=== PATIENT | male | born 1965 | race Caucasian/White ===

== ENCOUNTER 2020-07-01 09:14 | Observation (INO) | payer OTHER, SELFPAY ==
[~2020-07-01] VITALS: Ht 170.2 cm; Wt 98.0 kg
[2020-07-01 09:16] VITALS: BP 199/97
--- NOTE | 2020-07-01 09:16 | NUR ---
Patient to bed 11. RN evaluating the patient at bedside.
--- NOTE | 2020-07-01 09:24 | NUR ---
[facility]
--- NOTE | 2020-07-01 10:27 | NUR ---
55 Y/O M BIB FAMILY FROM HOME, PT STATES "I DONT FEEL GOOD". UNABLE TO GIVE ME ANY SYMPTOMS HE FEELS AT THIS TIME. DENIES PAIN, SOB, COUGH, ABD PAIN, URINARY PAIN. UPON ASSESSMENT PT SEEMS SLIGHTLY ALTERED. A&O X2 TO NAME AND . PT UNABLE TO AMBULATE, USES WHEELCHAIR, AKA L LEG FROM WORK ACCIDENT A FEW YEARS BACK. PT HAS BILATERAL LEG AND UPPER EXTREMITY EDEMA PITTING +1 ON ARMS, +2 ON LEGS. PMH: DM2, HTN NKA MEDS: COMPLIANT
[2020-07-01] MEDS ORDERED: HYDR-1100 PO (11:11)
[2020-07-01] MEDS ORDERED: METO100T14 PO (11:11)
[2020-07-01] MEDS ORDERED: LISI-487 PO (11:11)
[2020-07-01] MEDS ORDERED: FERR325E14 PO (11:11)
[2020-07-01] MEDS ORDERED: POTA10TE30 PO (11:11)
[2020-07-01] MEDS ORDERED: NIFE30TE5 PO (11:11)
[2020-07-01] MEDS ORDERED: FURO-570 PO (11:11)
[2020-07-01] MEDS ORDERED: CHOL500014 PO (11:11)
[2020-07-01 11:14] LABS: HEMOGLOBIN 9.5 g/dL (12.0-18.0)
[2020-07-01 11:20] LABS: BASOPHILS # (AUTO) 0.1 K/uL (0.00-0.22); BASOPHILS % (AUTO) 1.2 % (0.0-2.0); EOSINOPHILS % (AUTO) 0.5 % (0.0-4.0); HEMATOCRIT 28.1 % (36-52); LYMPHOCYTES # (AUTO) 0.9 K/uL (2.0-11.5); LYMPHOCYTES % (AUTO) 14.7 % (20.5-51.1); MEAN CORPUSCULAR HEMOGLOBIN 30 pg (27-31); MEAN CORPUSCULAR HGB CONC 34 g/dL (33-37); MONOCYTES # (AUTO) 0.3 K/uL (0.8-1.0); MONOCYTES % (AUTO) 5.3 % (1.7-9.3); NEUTROPHILS # (AUTO) 4.5 K/uL (1.8-7.7); NEUTROPHILS % (AUTO) 78.3 % (42.2-75.2); PLATELET COUNT (AUTO) 363 K/uL (140-450); RED CELL DISTRIBUTION WIDTH 15.8 % (11.6-13.7); WHITE BLOOD COUNT (AUTO) 5.8 K/uL (4.8-10.8)
[2020-07-01] MEDS ORDERED: LORazepam 2 MG/ML VIAL IVP ONE (11:20)
[2020-07-01 11:22] LABS: BILIRUBIN,URINE NEGATIVE (NEGATIVE); BLOOD, URINE TRACE-I (NEGATIVE); COLOR,URINE YELLOW (YELLOW); LEUKOCYTE ESTERASE ,URINE NEGATIVE (NEGATIVE); NITRITE, URINE NEGATIVE (NEGATIVE); UGLUCOSE NEGATIVE (NEGATIVE)
[2020-07-01 11:28] LABS: ACETAMINOPHEN < 0.5 ug/ml (10-30); ALBUMIN 2.1 g/dL (3.4-5.0); ANION GAP 11.8 (8-16); ASPARTATE AMINOTRANSFERASE 29 U/L (15-37); CARBON DIOXIDE 25.6 mmol/L (21-32); CHLORIDE 108 mmol/L (98-107); CREATININE 3.1 mg/dL (0.6-1.3); GFR ARICAN-AMERICAN 27 mL/min (>90); POTASSIUM 3.4 mmol/L (3.5-5.1); SODIUM SERUM 142 mmol/L (136-145); TOTAL BILIRUBIN 0.4 mg/dL (0.0-1.0); UREA NITROGEN, BLOOD 40 mg/dL (7-18)
--- NOTE | 2020-07-01 11:30 | NUR ---
XRAY AT BEDSIDE.
[2020-07-01 11:35] LABS: GLUCOSE 28 mg/dL (74-106); SALICYLATE < 2.8 mg/dL (2.8-20.0)
[2020-07-01] MEDS ORDERED: DEXTROSE 50% 50 ML SYR IVP ONE (11:40)
[2020-07-01 11:45] LABS: APPEARANCE,URINE SLIGHTLY HAZY (CLEAR)
[2020-07-01 11:46] LABS: FINE GRANULAR CASTS,URINE 0-10 /LPF (None Seen); HYALINE CASTS, URINE 0-10 /LPF (None Seen); RBC,URINE 0-5 /HPF (0-5); WBC,URINE 0-5 /HPF (0-5)
[2020-07-01 11:48] LABS: BARBITURATE, URINE NEGATIVE ng/ml (NEG <=200); BENZODIAZEPINE, URINE NEGATIVE ng/mL (NEG <=200); CANNABINOID, URINE NEGATIVE ng/mL (NEG <=50); COCAINE, URINE NEGATIVE ng/mL (NEG <=300); OPIATE, URINE NEGATIVE ng/mL (NEG <=2000); PHENCYCLIDINE SCREEN,URINE NEGATIVE ng/mL (NEG <=25)
[2020-07-01] MEDS ORDERED: cefTRIAXone 1,000 MG VIAL ONE ×2 (12:49→14:01)
[2020-07-01] MEDS ORDERED: ONDANSETRON 4 MG/2 ML VIAL IVP PRN (13:20)
[2020-07-01] MEDS ORDERED: ACETAMINOPHEN 325 MG TAB PO PRN (13:20)
[2020-07-01] MEDS ORDERED: HYDROcodone/APAP 5/325 MG 1 TAB TAB PO PRN (13:20)
[2020-07-01] MEDS ORDERED: LORazepam 2 MG/ML VIAL IVP PRN (13:20)
[2020-07-01] MEDS: DEXT 5% /NACL 0.9% 1,000 ML IV SCH (13:38)
[2020-07-01] MEDS ORDERED: AZITHROMYCIN 500 MG INJ VIAL IV ONE (14:01)
[2020-07-01] MEDS: AZITHROMYCIN 500 MG in DEXTROSE 5% 250 ML IV SCH (14:47)
--- NOTE | 2020-07-01 15:03 | NUR ---
RECEIVED REPORT FROM ER NURSE SEGUNDO, PT CHIEF COMPLAIN OF NOT FEELING WELL AND BLOOD PRESSURE HIGH,PT IS CONFUSED ADMITTED ON MED SURG AND ON 2LPM NC OXYGEN, ON REGULAR DIET IV INTACT ON RIGHT AC WITH IV FLUIDS OF D5NS AT 60 MLS/HR, WITH SACRAL REDNESS AND LEFT BELOW KNEE AMPUTATION AND BILATERAL LE/UE EDEMA, WITH JENKINS CATHETER,POTASSIUM LEVEL AT 3.4 DR GARRISON AWARE PER ER NURSE AND DO NOT NEED ANY REPLACEMENT FOR POTASSIUM.
[2020-07-01 15:35] VITALS: BP 215/121
--- NOTE | 2020-07-01 15:35 | NUR ---
PATIENT TRANSFERRED TO UNIT VIA GURNEY, ASSISTED TO BED, CHANGED PT GOWN, CHECK VITAL SIGNS BP 215/121 MA 82 RR 18 TEMP 96.7 OXYGEN SATURATION 100% ORIENTED TO ROOM, MRSA DONE AT ER. URINE OUTPUT 300 ML, SAFETY MEASURES IN PLACE AND CALL LIGHT WITHIN REACH WILL CONTINUE TO MONITOR.
--- NOTE | 2020-07-01 15:41 | NUR ---
PAGED DR GARRISON FOR HIGH BP, VERBAL ORDER FOR HYDRALAZINE 50 MG Q 4 HR PRN.
--- NOTE | 2020-07-01 15:42 | NUR ---
Patient will be admitted to care of MELI LYONS. Admited to MED SURG. Will go to room 110B. Belongings list completed. Report to JOSR LOPEZ.
[2020-07-01] MEDS: hydrALAZINE 25 MG TAB PO PRN (16:22)
--- NOTE | 2020-07-01 16:26 | NUR ---
BP 209/119 HR 81 O2SAT 100%. HYDRALAZINE 50MG PO PRN GIVEN WITH APPLESAUCE. PATIENT ALERT TO NAME AND . NO NOTED DISTRESS AT THIS TIME. CALL LIGHT WITHIN REACH. WILL CONTINUE TO MONITOR. Addendum: 07/01/20 at 1633 by Maninder Hernandez RN PRIMARY JESSICA CAMPOS MADE AWARE.
--- NOTE | 2020-07-01 17:09 | NUR ---
INFORMED DR GARRISON IF WE COULD TRANSFERS PT FROM [place] TO TELEMONITOR PATIENTS BLOOD PRESSURE TOO HIGH, AND AGREED,
[2020-07-01] MEDS ORDERED: INSULIN LISPRO SLIDING SCALE 100 UNITS/ML VIAL SUBQ PRN (18:10)
[2020-07-01] MEDS ORDERED: DEXTROSE 50% 50 ML SYR IVP PRN (18:10)
--- NOTE | 2020-07-01 18:30 | NUR ---
CHECK BLOOD SUGAR 31 MG/DL GAVE [id number] ORDERED.
--- NOTE | 2020-07-01 19:00 | NUR ---
PT BP 217/109 FL 81 GAVE HYDRALAZINE AND [address] GARRISON AWARE.
[2020-07-01] MEDS: hydrALAZINE 20 MG/ML VIAL IVP PRN (19:07)
[2020-07-01] MEDS: amLODIPine 5 MG TAB PO SCH (19:07)
--- NOTE | 2020-07-01 19:36 | NUR ---
RECEIVED PATIENT FROM MORNING SHIFT RN AWAKE , ALERT [place] SPEAKING . NO DISTRESS, RESPIRATION EVEN UNLABORED. JENKINS CATHETER INTACT DRAINING WELL TO A PINKISH COLORED URINE. DENIES PAIN AT THIS TIME. WILL CONTINUE TO MONITOR.
--- NOTE | 2020-07-01 19:39 | NUR ---
ENDORSED TO NIGHT NURSE FOR CONTINUITY OF CARE.
[2020-07-01 20:00] VITALS: BP 157/85
--- NOTE | 2020-07-01 20:10 | NUR ---
BLOOD SUGAR 91 , ORANGE JUICE WITH REGULAR SUGAR GIVEN WENT UP TO 108. NO DISTRESS NOTED. CALL LIGHT WITHIN REACH. WILL CONTINUE TO MONITOR.
[2020-07-01] MEDS: BLOOD GLUCOSE MONITORING 1 DEV DEV FS SCH (20:43)
--- NOTE | 2020-07-01 23:10 | NUR ---
MADE ROUNDS PATIENT SLEEPING AT THIS TIME. BREATHING REGULAR NON LABORED.
[2020-07-02] VITALS (7 sets, daily range): BP systolic 125–175; BP diastolic 52–93
[2020-07-02] MEDS: hydrALAZINE 25 MG TAB PO PRN ×2 (00:17→22:16)
--- NOTE | 2020-07-02 00:17 | NUR ---
BP- 174/89 HYDRALAZINE 50 MG TABLET GIVEN AND WAS EFFECTIVE, WENT DOWN TO 120/56. DENIES PAIN.
[2020-07-02] MEDS: DEXT 5% /NACL 0.9% 1,000 ML IV SCH ×2 (01:50→14:49)
[2020-07-02 06:38] LABS: BASOPHILS % (AUTO) 0.6 % (0.0-2.0); EOSINOPHILS # (AUTO) 0.1 K/uL (0-0.4); EOSINOPHILS % (AUTO) 2.2 % (0.0-4.0); HEMATOCRIT 24.8 % (36-52); HEMOGLOBIN 8.5 g/dL (12.0-18.0); LYMPHOCYTES # (AUTO) 1.3 K/uL (2.0-11.5); MEAN CORPUSCULAR HEMOGLOBIN 30 pg (27-31); MEAN CORPUSCULAR HGB CONC 34 g/dL (33-37); MEAN CORPUSCULAR VOLUME 88.8 fL (80-94); MONOCYTES # (AUTO) 0.5 K/uL (0.8-1.0); MONOCYTES % (AUTO) 9.4 % (1.7-9.3); NEUTROPHILS # (AUTO) 3.7 K/uL (1.8-7.7); NEUTROPHILS % (AUTO) 64.8 % (42.2-75.2); PLATELET COUNT (AUTO) 328 K/uL (140-450); RED BLOOD CELL COUNT(AUTO) 2.79 MIL/uL (4.20-6.10); RED CELL DISTRIBUTION WIDTH 15.5 % (11.6-13.7); WHITE BLOOD COUNT (AUTO) 5.8 K/uL (4.8-10.8)
[2020-07-02 06:55] LABS: ALBUMIN 1.8 g/dL (3.4-5.0); ANION GAP 11.8 (8-16); CARBON DIOXIDE 24.9 mmol/L (21-32); CREATININE 3.1 mg/dL (0.6-1.3); MAGNESIUM 2.3 mg/dL (1.8-2.4); POTASSIUM 3.7 mmol/L (3.5-5.1); TOTAL BILIRUBIN 0.3 mg/dL (0.0-1.0)
[2020-07-02] MEDS: BLOOD GLUCOSE MONITORING 1 DEV DEV FS SCH ×4 (06:55→21:29)
--- NOTE | 2020-07-02 07:14 | NUR ---
PATIENT HAS BEEN SCREENED AND CATEGORIZED MODERATE NUTRITION RISK. PATIENT WILL BE SEEN WITHIN 3-5 DAYS OF ADMISSION. 07/03/20-07/05/20 DORINDA GRADY MS, RDN
--- NOTE | 2020-07-02 07:30 | NUR ---
ENDORSED TO THE MORNING SHIFT RN FOR CONTINUITY OF CARE IN STABLE CONDITION.
--- NOTE | 2020-07-02 07:31 | NUR ---
RECEIVED ENDORSEMENT AT THIS TIME. PT IS STABLE RESTING WITH EYES CLOSED. ON 2L NS AT THIS TIME. POC DISCUSSED AND WILL CONTINUE.
[2020-07-02] MEDS: amLODIPine 5 MG TAB PO SCH (08:26)
[2020-07-02] MEDS: ASPIRIN 81 MG TAB.CHEW PO SCH (08:26)
[2020-07-02] MEDS: ENOXAPARIN 40 MG/0.4 ML SYR SUBQ SCH (08:28)
--- NOTE | 2020-07-02 08:30 | NUR ---
SCHEDULED MEDICATION GIVEN TOLERATED WELL, DENIES ANY DISTRESS PT IS [place] SPEAKING AAOX4. LUNG SOUNDS DIMINISHED NO COUGH ABD IS SOFT NONTENDER WITH ACTIVE BS X 4. REPORTS LBM 2 DAYS AGO WITH NO DIFFICULTY. HAS IV ACCESS TO RIGHT AC THAT IS INTACT AND PATENT RECEIVING IVF WITH NO ISSUES.
--- NOTE | 2020-07-02 10:25 | NUR ---
PT RESTING IN BED AT THIS TIME WITH EYES CLOSED.
--- NOTE | 2020-07-02 12:30 | NUR ---
BS 169 2 UNITS OF COVERAGE GIVEN TOLERATED WELL. DENIES ANY DISTRESS.
[2020-07-02] MEDS ORDERED: AZIT500T8 PO (13:50)
[2020-07-02] MEDS ORDERED: CEPH500T PO (13:50)
[2020-07-02] MEDS: AZITHROMYCIN 500 MG in DEXTROSE 5% 250 ML IV SCH (14:15)
--- NOTE | 2020-07-02 14:25 | NUR ---
TITRATED OFF O2 SPO2 95% ON RA. DENIES SOB. PT RESTING.
--- NOTE | 2020-07-02 16:25 | NUR ---
DR GARRISON NOTIFIED OF 200ML OF OUTPUT THIS SHIFT WITH GENERALIZED EDEMA. DR ORDERED LASIX TO BE GIVEN IVP AND WILL PRECEDE WITH DISCHARGE.
[2020-07-02] MEDS ORDERED: FUROSEMIDE 20 MG/2 ML VIAL IVP ONE (16:50)
--- NOTE | 2020-07-02 17:36 | NUR ---
JENKINS CATH DC PER MD ORDER DUE TO DISCHARGE. AWAITING POST VOID.
[2020-07-02] MEDS: hydrALAZINE 20 MG/ML VIAL IVP PRN (18:46)
--- NOTE | 2020-07-02 18:47 | NUR ---
PT VOIDED ABOUT 50ML OF URINE HOWEVER MATIAS WAS 180/96, 96 SO PRN HYDRALAZINE IVP WAS GIVEN FOR ELEVATED BP. WILL RECHECK TO MAKE SURE BP IS NORMAL BEFORE DISCHARGE. DISCHARGE INSTRUCTIONS DISCUSSED WITH PATIENT. VERBALIZED UNDERSTANDING.
--- NOTE | 2020-07-02 19:33 | NUR ---
PT ENDORSED TO PARTS DESIGNER RN FOR CONTINUITY OF CARE. ENDORSED F/U AT 1946 FOR BP CHECK AND ASSESS STABILITY FOR DISCHARGE. ALL DISCHARGE INSTRUCTIONS DISCUSSED WITH PATIENT. PT VERBALIZED UNDERSTANDING.
--- NOTE | 2020-07-02 19:34 | NUR ---
RECEIVED PATIENT FROM AM SHIFT RN AWAKE , ALERT RESTING IN BED , NO ACUTE DISTRESS, BREATHING REGULAR NON LABORED. DENIES PAIN AT THIS TIME.
--- NOTE | 2020-07-02 20:38 | NUR ---
BP- PAGED DR. FINK TELEGRAPH DISPATCHER OF DR GARRISON. CALLED BACK AT [address] FINK REGARDING HIGH BP IF HE CONTINUE TO DISCHARGE PATIENT, HE SAID GIVE BP MEDS AND DISCHARGE HIM. PRN BP MEDS ADMINISTERED. BP STILL HIGH, PT FEEL DIZZY. NOTIFIED DR. FINK AND ORDERED TO CANCEL DISCHARGE. Addendum: 07/03/20 at 0649 by Vilma Wan RN RN BP- PAGED DR. FINK TELEGRAPH DISPATCHER OF DR GARRISON. CALLED BACK AT [address] FINK REGARDING HIGH BP IF HE CONTINUE TO DISCHARGE PATIENT, HE SAID GIVE BP MEDS AND DISCHARGE HIM. PRN BP MEDS ADMINISTERED.
[2020-07-03] VITALS: BP 184/91
--- NOTE | 2020-07-03 00:07 | NUR ---
BP STILL HIGH 184/92 , PATIENT FEEL DIZZY PAGED DR. FINK . CALLED BACK WITH ORDER TO HOLD DISCHARGE.
[2020-07-03] MEDS: DEXT 5% /NACL 0.9% 1,000 ML IV SCH (02:50)
[2020-07-03 04:00] VITALS: BP 177/86
[2020-07-03] MEDS: hydrALAZINE 25 MG TAB PO PRN (06:18)
--- NOTE | 2020-07-03 06:18 | NUR ---
BP- 177/86 -HYDRALAZINE 50 MG TABLET GIVEN. BLOOD SUGAR - 112MG/DL NO URINE OUTPUT. DENIES PAIN .
--- NOTE | 2020-07-03 07:05 | NUR ---
PAGED DR. GARRISON DUE TO PT NO URINE OUTPUT OVERNIGHT.
--- NOTE | 2020-07-03 07:05 | NUR ---
BLADDER SCAN DONE NOTED 480 ML URINE, DENIES PAIN. PAGED DR. GARRISON, AWAITING FOR CALL BACK.
--- NOTE | 2020-07-03 07:20 | NUR ---
PATIENT WAS ABLE TO URINATE WITH 180 ML URINE. ENDORSED PT TO MORNING SHIFT RN FOR CONTINUITY OF CARE IN STABLE CONDITION.
--- NOTE | 2020-07-03 07:25 | NUR ---
RECEIVED BEDSIDE REPORT FROM NIGHTSHIFT NURSE. PT RESTING IN BED. PT ABLE TO MAKE NEEDS KNOWN. RESPIRATIONS EVEN AND UNLABORED WITH NO SOB OR RESPIRATORY DISTRESS. SKIN WARM AND DRY TO TOUCH. IV SITE IN RAC 20G IS CLEAN, DRY, AND INTACT. SAFETY MEASURES IN PLACE. WILL CONTINUE TO MONITOR
[2020-07-03] MEDS: BLOOD GLUCOSE MONITORING 1 DEV DEV FS SCH ×2 (07:51→11:38)
[2020-07-03 08:00] VITALS: BP 199/98
[2020-07-03] MEDS: amLODIPine 5 MG TAB PO SCH (08:49)
[2020-07-03] MEDS: ENOXAPARIN 40 MG/0.4 ML SYR SUBQ SCH (08:49)
[2020-07-03] MEDS: ASPIRIN 81 MG TAB.CHEW PO SCH (08:50)
[2020-07-03] MEDS: hydrALAZINE 20 MG/ML VIAL IVP PRN (08:51)
--- NOTE | 2020-07-03 08:57 | NUR ---
ADMINISTERED SCHED MED PRESCRIBED PER MD ORDER. ADMINISTERED PRN HYDRALAZINE DUE TO PT BP BEING ELEVATED AT 202/99. MEDICATION EDUCATION PERFORMED. PT VERBALIZED UNDERSTANDING. SAFETY MEASURES IN PLACE. WILL CONTINUE TO MONITOR
--- NOTE | 2020-07-03 09:30 | NUR ---
PT NEPHEW CALLED AND ASKED FOR UPDATE. UPDATE GIVEN. NEPHEW VERBALIZED UNDERSTANDING. WILL CONTINUE TO MONITOR
--- NOTE | 2020-07-03 10:01 | NUR ---
PT BP AT 173/89, 180/93, AND 196/99 AFTER PRN IVP HYDRALAZINE. PAGED DR. VAUGHN, PER DR. VAUGHN HE WILL BE HERE AROUND [phone] TO ASSESS PATIENT. WILL CONTINUE TO MONITOR
--- NOTE | 2020-07-03 10:15 | NUR ---
PT DAUGHTER CALLED AND ASKED FOR UPDATE. UPDATE GIVEN. DAUGHTER VERBALIZED UNDERSTANDING. WILL CONTINUE TO MONITOR
--- NOTE | 2020-07-03 11:30 | NUR ---
PT BLOOD SUGAR IS 115. NO INSULIN NEEDED AT THIS TIME. SAFETY MEASURES IN PLACE. WILL CONTINUE TO MONITOR
[2020-07-03 12:00] VITALS: BP 177/90
--- NOTE | 2020-07-03 12:00 | NUR ---
SOCIAL WORK NOTE: SW WAS UNABLE TO MEET PATIENT AT BEDSIDE. SW LEFT VM WITH PATIENT'S SISTER, JOURDAN PHIPPS [phone]. SW WILL FOLLOW UP TO COMPLETE ASSESSMENT.
[2020-07-03] MEDS ORDERED: FUROSEMIDE 40 MG TAB PO SCH (12:10)
[2020-07-03] MEDS ORDERED: METOPROLOL SUCCINATE 50 MG TABER PO SCH (12:10)
[2020-07-03] MEDS ORDERED: lisinopriL 20 MG TAB PO SCH (12:10)
[2020-07-03] MEDS ORDERED: NIFEdipine 30 MG TABER PO SCH (12:10)
[2020-07-03] MEDS: AZITHROMYCIN 500 MG in DEXTROSE 5% 250 ML IV SCH (13:29)
--- NOTE | 2020-07-03 14:09 | NUR ---
PT C/O NAUSEA, STATES HE MAY HAVE OVEREATEN, EMESIS BASIN PROVIDED, DECLINED MEDICATION FOR NAUSEA, WILL CONTINUE TO MONITOR, CALL LIGHT WITHIN REACH, INFORMED HE NEEDS TO CALL US IF HE CHANGES HIS MIND AND WOULD LIKE MEDICATION. PT VERBALIZED UNDERSTANDING.
--- NOTE | 2020-07-03 15:00 | NUR ---
PER DR. VAUGHN, PT CAN GO HOME ONCE BP IS BELOW 150-160. PT BP IS 127/52. PT STATES HE FEELS BETTER AND WANTS TO GO HOME AROUND 1600. WILL CONTINUE TO MONITOR
--- NOTE | 2020-07-03 15:30 | NUR ---
WENT OVER DISCHARGE INSTRUCTIONS WITH PATIENT. USED METALIZING SUPERVISOR ANDIE [id number]. PT SIGNED APPROPRIATE DOCUMENTS. EDUCATED PT TO VISIT ED FOR ANY SIGNS OF DISTRESS. PT VERBALIZED UNDERSTANDING. PT REFUSED FLU VACCINE AND PNA VACCINE. REMOVED INTACT IV CANNULA, ID BAND, AND TELE MONITOR. TELE MONITOR RETURNED TO SENIOR ADMINISTRATIVE ASSISTANT. PT CHANGED INTO HIS OWN CLOTHES AND GATHERED HIS BELONGINGS. PT STABLE TO GO HOME VIA PRIVATE VEHICLE
[2020-07-04] MEDS ORDERED: FERROUS SULFATE 325 MG TABEC PO SCH (09:00)
[2020-07-04] MEDS ORDERED: POTASSIUM CHLORIDE 10 MEQ TABER PO SCH (09:00)
== END 2020-07-03 15:00 | disposition home or self-care (01) ==
LOC: MED 09:14 → MTU 13:19
PROVIDERS: ADMIT Hospitalist; ATTEND Hospitalist
DX: G93.40 Encephalopathy, unspecified (principal); Z20.822 Contact with and (suspected) exposure to COVID-19; E11.65 Type 2 diabetes mellitus with hyperglycemia; I12.9 Hypertensive chronic kidney disease with stage 1 through stage 4 chronic kidney disease, or unspecified chronic kidney disease; E11.22 Type 2 diabetes mellitus with diabetic chronic kidney disease; N18.9 Chronic kidney disease, unspecified; E11.42 Type 2 diabetes mellitus with diabetic polyneuropathy; E11.51 Type 2 diabetes mellitus with diabetic peripheral angiopathy without gangrene; E78.5 Hyperlipidemia, unspecified; Z79.899 Other long term (current) drug therapy
CPT/HCPCS: 36415; 70450; 71045; 80053; 80305; 81001; 82948; 83605; 83735; 83880; 84484; 85025; 87040; 87081; 87086; 87426; 93005; 96361; 96365; 96366; 96367; 96372; 96375; 96376; 99285; G0378; G0482; J0360; J0456; J0696; J1650; J1940; J2060; J7042; J7060; G0480

== ENCOUNTER 2020-07-19 09:23 | Inpatient (IN) | payer OTHER, SELFPAY ==
[~2020-07-19] VITALS: Ht 167.6 cm; Wt 70.3 kg
[2020-07-19 09:23] VITALS: BP 156/78
[~2020-07-19 09:23] MED LIST: AZIT500T8 PO; CEPH500T PO; CHOL500014 PO; FERR325E14 PO; FURO-570 PO; HYDR-1100 PO; LISI-487 PO; METO100T14 PO; NIFE30TE5 PO; POTA10TE30 PO
[2020-07-19] MEDS ORDERED: DEXTROSE 50% 50 ML SYR IVP ONE ×2 (09:34→09:35)
[2020-07-19] MEDS ORDERED: NACL 0.9% 1,000 ML IV SCH (09:35)
[2020-07-19] MEDS ORDERED: cefTRIAXone 1,000 MG in DEXT 5% MINI-BAG PLUS 50 ML IV ONE (09:35)
[2020-07-19] MEDS ORDERED: cefTRIAXone 1,000 MG VIAL ONE (09:40)
[2020-07-19 09:59] LABS: BASOPHILS # (AUTO) 0.1 K/uL (0.00-0.22); BASOPHILS % (AUTO) 0.9 % (0.0-2.0); EOSINOPHILS # (AUTO) 0.1 K/uL (0-0.4); EOSINOPHILS % (AUTO) 2.4 % (0.0-4.0); HEMOGLOBIN 8.7 g/dL (12.0-18.0); LYMPHOCYTES # (AUTO) 1.1 K/uL (2.0-11.5); LYMPHOCYTES % (AUTO) 19.2 % (20.5-51.1); MEAN CORPUSCULAR HEMOGLOBIN 31 pg (27-31); MEAN CORPUSCULAR HGB CONC 34 g/dL (33-37); MEAN CORPUSCULAR VOLUME 91.3 fL (80-94); MONOCYTES # (AUTO) 0.4 K/uL (0.8-1.0); MONOCYTES % (AUTO) 7.3 % (1.7-9.3); NEUTROPHILS # (AUTO) 3.9 K/uL (1.8-7.7); NEUTROPHILS % (AUTO) 70.2 % (42.2-75.2); PLATELET COUNT (AUTO) 380 K/uL (140-450); RED BLOOD CELL COUNT(AUTO) 2.85 MIL/uL (4.20-6.10); RED CELL DISTRIBUTION WIDTH 15.9 % (11.6-13.7); WHITE BLOOD COUNT (AUTO) 5.6 K/uL (4.8-10.8)
[2020-07-19] MEDS ORDERED: FUROSEMIDE 40 MG/4 ML VIAL IVP ONE (10:10)
[2020-07-19 10:20] LABS: ALBUMIN 2.2 g/dL (3.4-5.0); ANION GAP 9.8 (8-16); CARBON DIOXIDE 24.6 mmol/L (21-32); CREATININE 3.3 mg/dL (0.6-1.3); POTASSIUM 5.4 mmol/L (3.5-5.1); TOTAL BILIRUBIN 0.3 mg/dL (0.0-1.0)
[2020-07-19] MEDS ORDERED: POTASSIUM CHLORIDE 10 MEQ TABER PO PRN (11:40)
[2020-07-19] MEDS ORDERED: HYDROcodone/APAP 5/325 MG 1 TAB TAB PO PRN (11:40)
[2020-07-19] MEDS ORDERED: KCL 20 MEQ/WATER INJ PREMIX 200 ML IV PRN (11:40)
[2020-07-19] MEDS ORDERED: MAGNESIUM OXIDE 400 MG TAB PO PRN (11:40)
[2020-07-19] MEDS ORDERED: MAG SULF 2000 MG/WATER PREMIX 50 ML IV PRN (11:40)
[2020-07-19] MEDS ORDERED: ONDANSETRON 4 MG/2 ML VIAL IVP PRN (11:40)
[2020-07-19] MEDS ORDERED: ACETAMINOPHEN 325 MG TAB PO PRN (11:40)
[2020-07-19] MEDS ORDERED: LORazepam 1 MG TAB PO PRN (11:40)
[2020-07-19 13:40] VITALS: BP 186/97
[2020-07-19] MEDS: ALBUTEROL SULFATE/IPRATROPIU 3 ML SOL IH SCH (13:43)
[2020-07-19 16:00] VITALS: BP 203/105
[2020-07-19 16:18] LABS: APPEARANCE,URINE CLEAR (CLEAR); BILIRUBIN,URINE NEGATIVE (NEGATIVE); BLOOD, URINE NEGATIVE (NEGATIVE); COLOR,URINE YELLOW (YELLOW); LEUKOCYTE ESTERASE ,URINE NEGATIVE (NEGATIVE); NITRITE, URINE NEGATIVE (NEGATIVE); PH,URINE 5.5 (5.0-9.0); UGLUCOSE NEGATIVE (NEGATIVE)
[2020-07-19] MEDS ORDERED: NIFEdipine 30 MG TABER PO SCH (16:30)
[2020-07-19] MEDS ORDERED: hydrALAZINE 25 MG TAB PO SCH (17:00)
[2020-07-19] MEDS ORDERED: DEXTROSE 50% 50 ML SYR IVP PRN (19:05)
[2020-07-19 20:00] VITALS: BP 209/111
[2020-07-19] MEDS: BLOOD GLUCOSE MONITORING 1 DEV DEV FS SCH (21:25)
[2020-07-20] VITALS: BP 205/115
[2020-07-20] MEDS: CLONIDINE HYDROCHLORIDE 0.1 MG TAB PO PRN (01:39)
[2020-07-20 04:00] VITALS: BP 220/118
[2020-07-20] MEDS: LABETALOL 100 MG/20 ML VIAL IV PRN ×3 (05:04→15:14)
[2020-07-20 06:23] LABS: BASOPHILS # (AUTO) 0.1 K/uL (0.00-0.22); BASOPHILS % (AUTO) 1.3 % (0.0-2.0); EOSINOPHILS # (AUTO) 0.2 K/uL (0-0.4); EOSINOPHILS % (AUTO) 4.1 % (0.0-4.0); HEMOGLOBIN 8.6 g/dL (12.0-18.0); LYMPHOCYTES % (AUTO) 17.7 % (20.5-51.1); MEAN CORPUSCULAR HEMOGLOBIN 30 pg (27-31); MEAN CORPUSCULAR HGB CONC 33 g/dL (33-37); MEAN CORPUSCULAR VOLUME 90.3 fL (80-94); MONOCYTES # (AUTO) 0.5 K/uL (0.8-1.0); MONOCYTES % (AUTO) 9.3 % (1.7-9.3); NEUTROPHILS # (AUTO) 3.7 K/uL (1.8-7.7); NEUTROPHILS % (AUTO) 67.6 % (42.2-75.2); PLATELET COUNT (AUTO) 359 K/uL (140-450); RED BLOOD CELL COUNT(AUTO) 2.88 MIL/uL (4.20-6.10); RED CELL DISTRIBUTION WIDTH 15.8 % (11.6-13.7); WHITE BLOOD COUNT (AUTO) 5.5 K/uL (4.8-10.8)
[2020-07-20 06:46] LABS: ALBUMIN 2.1 g/dL (3.4-5.0); ANION GAP 13.3 (8-16); CARBON DIOXIDE 23.7 mmol/L (21-32); CREATININE 3.1 mg/dL (0.6-1.3); TOTAL BILIRUBIN 0.3 mg/dL (0.0-1.0)
[2020-07-20 06:48] LABS: MAGNESIUM 2.2 mg/dL (1.8-2.4); PHOSPHORUS 5.6 mg/dL (2.5-4.9)
[2020-07-20] MEDS: BLOOD GLUCOSE MONITORING 1 DEV DEV FS SCH ×4 (07:00→21:06)
[2020-07-20] MEDS: ALBUTEROL SULFATE/IPRATROPIU 3 ML SOL IH SCH ×3 (07:00→19:00)
[2020-07-20 08:00] VITALS: BP 197/107
[2020-07-20] MEDS ORDERED: NIFEdipine 30 MG TABER PO SCH (09:00)
[2020-07-20] MEDS ORDERED: NITROGLYCERIN 2% 1 GM PKT TP PRN (09:40)
[2020-07-20] MEDS ORDERED: FUROSEMIDE 100 MG/10 ML VIAL IV SCH (10:00)
[2020-07-20] MEDS: DOCUSATE SODIUM 100 MG GELCAP PO SCH (10:30)
[2020-07-20] MEDS: metOLazone 5 MG TAB PO SCH (10:31)
[2020-07-20] MEDS: NIFEdipine 60 MG TABER PO SCH (10:32)
[2020-07-20 10:35] LABS: ANION GAP 10.3 (8-16); CARBON DIOXIDE 25.6 mmol/L (21-32); CREATININE 3.2 mg/dL (0.6-1.3)
[2020-07-20 10:40] LABS: POTASSIUM 5.9 mmol/L (3.5-5.1)
[2020-07-20] MEDS: FUROSEMIDE 100 MG in DEXTROSE 5% 100 ML IV SCH ×2 (11:04→23:36)
[2020-07-20] MEDS: SODIUM ZIRCONIUM CYCLOSILICATE 10 GM POWD.PACK PO SCH ×2 (11:19→23:17)
[2020-07-20 12:00] VITALS: BP 190/99
[2020-07-20 16:00] VITALS: BP 166/88
[2020-07-20 20:00] VITALS: BP 150/86
[2020-07-21] VITALS (9 sets, daily range): BP systolic 140–219; BP diastolic 72–106
[2020-07-21 05:28] LABS: BASOPHILS # (AUTO) 0.1 K/uL (0.00-0.22); BASOPHILS % (AUTO) 1.1 % (0.0-2.0); EOSINOPHILS # (AUTO) 0.2 K/uL (0-0.4); EOSINOPHILS % (AUTO) 4.3 % (0.0-4.0); HEMATOCRIT 23.3 % (36-52); HEMOGLOBIN 7.7 g/dL (12.0-18.0); LYMPHOCYTES # (AUTO) 1.2 K/uL (2.0-11.5); LYMPHOCYTES % (AUTO) 23.4 % (20.5-51.1); MEAN CORPUSCULAR HEMOGLOBIN 30 pg (27-31); MEAN CORPUSCULAR HGB CONC 33 g/dL (33-37); MEAN CORPUSCULAR VOLUME 91.8 fL (80-94); MONOCYTES # (AUTO) 0.5 K/uL (0.8-1.0); MONOCYTES % (AUTO) 9.2 % (1.7-9.3); NEUTROPHILS # (AUTO) 3.2 K/uL (1.8-7.7); PLATELET COUNT (AUTO) 326 K/uL (140-450); RED BLOOD CELL COUNT(AUTO) 2.54 MIL/uL (4.20-6.10); RED CELL DISTRIBUTION WIDTH 15.6 % (11.6-13.7); WHITE BLOOD COUNT (AUTO) 5.1 K/uL (4.8-10.8)
[2020-07-21 06:30] LABS: CARBON DIOXIDE 25.7 mmol/L (21-32); CREATININE 3.3 mg/dL (0.6-1.3); MAGNESIUM 2.1 mg/dL (1.8-2.4); PHOSPHORUS 6.3 mg/dL (2.5-4.9); TOTAL BILIRUBIN 0.2 mg/dL (0.0-1.0)
[2020-07-21 06:38] LABS: ANION GAP 11.8 (8-16); POTASSIUM 5.5 mmol/L (3.5-5.1)
[2020-07-21] MEDS: BLOOD GLUCOSE MONITORING 1 DEV DEV FS SCH ×4 (06:48→20:04)
[2020-07-21] MEDS: DOCUSATE SODIUM 100 MG GELCAP PO SCH (09:00)
[2020-07-21] MEDS: metOLazone 5 MG TAB PO SCH (09:00)
[2020-07-21] MEDS: NIFEdipine 60 MG TABER PO SCH (09:00)
[2020-07-21] MEDS ORDERED: FUROSEMIDE 100 MG in DEXTROSE 5% 100 ML IV SCH (11:00)
[2020-07-21] MEDS: LABETALOL 100 MG/20 ML VIAL IV PRN ×3 (11:38→20:37)
[2020-07-21] MEDS: FUROSEMIDE 100 MG in DEXTROSE 5% 100 ML IV SCH ×2 (12:57→22:16)
[2020-07-21 15:55] LABS: ANION GAP 11.7 (8-16); CARBON DIOXIDE 23.5 mmol/L (21-32); CREATININE 3.2 mg/dL (0.6-1.3); POTASSIUM 5.2 mmol/L (3.5-5.1)
[2020-07-21] MEDS: hydrALAZINE 25 MG TAB PO SCH (16:59)
[2020-07-21] MEDS ORDERED: hydrALAZINE 25 MG TAB PO SCH (17:00)
[2020-07-21] MEDS ORDERED: NITROGLYCERIN 50 MG/D5W PREMIX 250 ML IV PRN (18:00)
[2020-07-21] MEDS: ALBUTEROL SULFATE/IPRATROPIU 3 ML SOL IH SCH (19:12)
[2020-07-22] VITALS (42 sets, daily range): BP systolic 107–197; BP diastolic 64–121
[2020-07-22] MEDS ORDERED: carvediloL 12.5 MG TAB PO SCH
[2020-07-22] MEDS: ALBUTEROL SULFATE/IPRATROPIU 3 ML SOL IH SCH ×4 (02:05→19:00)
[2020-07-22] MEDS: FUROSEMIDE 100 MG in DEXTROSE 5% 100 ML IV SCH ×3 (05:22→20:38)
[2020-07-22 05:33] LABS: BASOPHILS # (AUTO) 0.1 K/uL (0.00-0.22); BASOPHILS % (AUTO) 1.3 % (0.0-2.0); EOSINOPHILS # (AUTO) 0.2 K/uL (0-0.4); EOSINOPHILS % (AUTO) 4.4 % (0.0-4.0); HEMATOCRIT 22.8 % (36-52); HEMOGLOBIN 7.7 g/dL (12.0-18.0); LYMPHOCYTES # (AUTO) 1.1 K/uL (2.0-11.5); LYMPHOCYTES % (AUTO) 22.9 % (20.5-51.1); MEAN CORPUSCULAR HEMOGLOBIN 30 pg (27-31); MEAN CORPUSCULAR HGB CONC 34 g/dL (33-37); MONOCYTES # (AUTO) 0.6 K/uL (0.8-1.0); MONOCYTES % (AUTO) 11.6 % (1.7-9.3); NEUTROPHILS % (AUTO) 59.8 % (42.2-75.2); PLATELET COUNT (AUTO) 306 K/uL (140-450); RED BLOOD CELL COUNT(AUTO) 2.53 MIL/uL (4.20-6.10); RED CELL DISTRIBUTION WIDTH 15.3 % (11.6-13.7)
[2020-07-22 06:05] LABS: ALBUMIN 1.9 g/dL (3.4-5.0); CARBON DIOXIDE 25.2 mmol/L (21-32); CREATININE 3.3 mg/dL (0.6-1.3); MAGNESIUM 2.1 mg/dL (1.8-2.4); PHOSPHORUS 6.4 mg/dL (2.5-4.9); POTASSIUM 5.2 mmol/L (3.5-5.1); TOTAL BILIRUBIN 0.2 mg/dL (0.0-1.0)
[2020-07-22] MEDS: BLOOD GLUCOSE MONITORING 1 DEV DEV FS SCH ×4 (06:43→20:06)
[2020-07-22] MEDS: metOLazone 5 MG TAB PO SCH (09:18)
[2020-07-22] MEDS: NIFEdipine 60 MG TABER PO SCH (09:18)
[2020-07-22] MEDS: hydrALAZINE 25 MG TAB PO SCH ×3 (09:18→16:35)
[2020-07-22] MEDS: DOCUSATE SODIUM 100 MG GELCAP PO SCH (09:18)
[2020-07-22] MEDS: carvediloL 12.5 MG TAB PO SCH ×2 (09:18→20:06)
[2020-07-22] MEDS ORDERED: SODIUM ZIRCONIUM CYCLOSILICATE 10 GM POWD.PACK PO ONE (09:45)
[2020-07-22] MEDS: LABETALOL 100 MG/20 ML VIAL IV PRN ×3 (11:31→14:55)
[2020-07-22] MEDS: CLONIDINE HYDROCHLORIDE 0.1 MG TAB PO SCH ×2 (13:12→16:35)
[2020-07-22 15:16] LABS: ANION GAP 14.8 (8-16); CARBON DIOXIDE 24.4 mmol/L (21-32); CREATININE 3.3 mg/dL (0.6-1.3); POTASSIUM 5.2 mmol/L (3.5-5.1)
[2020-07-23] VITALS (22 sets, daily range): BP systolic 101–189; BP diastolic 50–113
[2020-07-23] MEDS: ALBUTEROL SULFATE/IPRATROPIU 3 ML SOL IH SCH ×4 (01:00→19:59)
[2020-07-23] MEDS: FUROSEMIDE 100 MG in DEXTROSE 5% 100 ML IV SCH ×3 (03:04→19:24)
[2020-07-23 05:31] LABS: BASOPHILS % (AUTO) 0.9 % (0.0-2.0); EOSINOPHILS # (AUTO) 0.2 K/uL (0-0.4); EOSINOPHILS % (AUTO) 4.7 % (0.0-4.0); HEMATOCRIT 24.2 % (36-52); HEMOGLOBIN 8.1 g/dL (12.0-18.0); LYMPHOCYTES # (AUTO) 1.1 K/uL (2.0-11.5); LYMPHOCYTES % (AUTO) 24.7 % (20.5-51.1); MEAN CORPUSCULAR HEMOGLOBIN 31 pg (27-31); MEAN CORPUSCULAR HGB CONC 34 g/dL (33-37); MEAN CORPUSCULAR VOLUME 91.2 fL (80-94); MONOCYTES # (AUTO) 0.5 K/uL (0.8-1.0); MONOCYTES % (AUTO) 10.9 % (1.7-9.3); NEUTROPHILS # (AUTO) 2.6 K/uL (1.8-7.7); NEUTROPHILS % (AUTO) 58.8 % (42.2-75.2); PLATELET COUNT (AUTO) 315 K/uL (140-450); RED BLOOD CELL COUNT(AUTO) 2.66 MIL/uL (4.20-6.10); RED CELL DISTRIBUTION WIDTH 15.5 % (11.6-13.7); WHITE BLOOD COUNT (AUTO) 4.4 K/uL (4.8-10.8)
[2020-07-23 06:13] LABS: ALBUMIN 1.8 g/dL (3.4-5.0); ANION GAP 11.5 (8-16); CARBON DIOXIDE 25.1 mmol/L (21-32); CREATININE 3.3 mg/dL (0.6-1.3); MAGNESIUM 2.1 mg/dL (1.8-2.4); PHOSPHORUS 6.2 mg/dL (2.5-4.9); POTASSIUM 4.6 mmol/L (3.5-5.1); TOTAL BILIRUBIN 0.2 mg/dL (0.0-1.0)
[2020-07-23] MEDS: BLOOD GLUCOSE MONITORING 1 DEV DEV FS SCH ×4 (06:38→19:52)
[2020-07-23] MEDS ORDERED: CLONIDINE HYDROCHLORIDE 0.1 MG TAB PO SCH (08:27)
[2020-07-23] MEDS ORDERED: hydrALAZINE 25 MG TAB PO SCH (08:30)
[2020-07-23] MEDS: carvediloL 12.5 MG TAB PO SCH ×2 (08:48→20:28)
[2020-07-23] MEDS: FAMOTIDINE 20 MG/2 ML VIAL IVP SCH (08:48)
[2020-07-23] MEDS: NIFEdipine 60 MG TABER PO SCH (08:48)
[2020-07-23] MEDS: DOCUSATE SODIUM 100 MG GELCAP PO SCH (08:48)
[2020-07-23] MEDS: SODIUM ZIRCONIUM CYCLOSILICATE 10 GM POWD.PACK PO SCH (08:49)
[2020-07-23] MEDS: metOLazone 5 MG TAB PO SCH (08:49)
[2020-07-23] MEDS: INSULIN LISPRO SLIDING SCALE 100 UNITS/ML VIAL SUBQ PRN (11:28)
[2020-07-23] MEDS: CLONIDINE HYDROCHLORIDE 0.1 MG TAB PO SCH ×2 (12:46→20:28)
[2020-07-23] MEDS: hydrALAZINE 25 MG TAB PO SCH ×2 (12:46→20:27)
[2020-07-23] MEDS: LABETALOL 100 MG/20 ML VIAL IV PRN ×4 (14:16→17:59)
[2020-07-23 15:36] LABS: ANION GAP 12.9 (8-16); CARBON DIOXIDE 23.5 mmol/L (21-32); CREATININE 3.4 mg/dL (0.6-1.3); POTASSIUM 4.4 mmol/L (3.5-5.1)
[2020-07-24] VITALS (12 sets, daily range): BP systolic 94–175; BP diastolic 61–95
[2020-07-24] MEDS: ALBUTEROL SULFATE/IPRATROPIU 3 ML SOL IH SCH ×4 (01:00→19:02)
[2020-07-24] MEDS: FUROSEMIDE 100 MG in DEXTROSE 5% 100 ML IV SCH ×3 (02:00→22:04)
[2020-07-24 05:09] LABS: EOSINOPHILS # (AUTO) 0.2 K/uL (0-0.4); EOSINOPHILS % (AUTO) 4.1 % (0.0-4.0); HEMATOCRIT 23.2 % (36-52); HEMOGLOBIN 7.8 g/dL (12.0-18.0); LYMPHOCYTES % (AUTO) 22.2 % (20.5-51.1); MEAN CORPUSCULAR HEMOGLOBIN 31 pg (27-31); MEAN CORPUSCULAR HGB CONC 34 g/dL (33-37); MEAN CORPUSCULAR VOLUME 90.7 fL (80-94); MONOCYTES # (AUTO) 0.4 K/uL (0.8-1.0); MONOCYTES % (AUTO) 10.2 % (1.7-9.3); NEUTROPHILS # (AUTO) 2.7 K/uL (1.8-7.7); NEUTROPHILS % (AUTO) 62.5 % (42.2-75.2); PLATELET COUNT (AUTO) 324 K/uL (140-450); RED BLOOD CELL COUNT(AUTO) 2.55 MIL/uL (4.20-6.10); RED CELL DISTRIBUTION WIDTH 15.1 % (11.6-13.7); WHITE BLOOD COUNT (AUTO) 4.3 K/uL (4.8-10.8)
[2020-07-24] MEDS: CLONIDINE HYDROCHLORIDE 0.1 MG TAB PO SCH ×3 (05:45→21:00)
[2020-07-24] MEDS: hydrALAZINE 25 MG TAB PO SCH ×3 (05:45→21:00)
[2020-07-24] MEDS: BLOOD GLUCOSE MONITORING 1 DEV DEV FS SCH ×4 (06:01→21:53)
[2020-07-24 06:16] LABS: ANION GAP 11.9 (8-16); CARBON DIOXIDE 26.4 mmol/L (21-32); POTASSIUM 4.3 mmol/L (3.5-5.1)
[2020-07-24 06:18] LABS: CREATININE 3.5 mg/dL (0.6-1.3); TOTAL BILIRUBIN 0.2 mg/dL (0.0-1.0)
[2020-07-24 06:19] LABS: ALBUMIN 1.8 g/dL (3.4-5.0); MAGNESIUM 2.1 mg/dL (1.8-2.4); PHOSPHORUS 6.9 mg/dL (2.5-4.9)
[2020-07-24] MEDS: carvediloL 12.5 MG TAB PO SCH ×2 (08:06→21:00)
[2020-07-24] MEDS: NIFEdipine 60 MG TABER PO SCH (08:06)
[2020-07-24] MEDS: metOLazone 5 MG TAB PO SCH (08:06)
[2020-07-24] MEDS: DOCUSATE SODIUM 100 MG GELCAP PO SCH (08:06)
[2020-07-24] MEDS: FAMOTIDINE 20 MG/2 ML VIAL IVP SCH (08:06)
[2020-07-24] MEDS: SODIUM ZIRCONIUM CYCLOSILICATE 10 GM POWD.PACK PO SCH (08:27)
[2020-07-24] MEDS: LABETALOL 100 MG/20 ML VIAL IV PRN (09:48)
[2020-07-24] MEDS: ISOSORBIDE DINITRATE 20 MG TAB PO SCH ×2 (13:21→16:46)
[2020-07-24] MEDS: SODIUM FERRIC GLUCONATE 125 MG in NACL 0.9% 100 ML IV SCH (14:12)
[2020-07-24] MEDS: INSULIN LISPRO SLIDING SCALE 100 UNITS/ML VIAL SUBQ PRN (21:54)
[2020-07-25] VITALS (7 sets, daily range): BP systolic 107–191; BP diastolic 61–94
[2020-07-25] MEDS: ALBUTEROL SULFATE/IPRATROPIU 3 ML SOL IH SCH ×4 (01:00→19:39)
[2020-07-25] MEDS: hydrALAZINE 25 MG TAB PO SCH ×3 (04:52→20:38)
[2020-07-25] MEDS: CLONIDINE HYDROCHLORIDE 0.1 MG TAB PO SCH ×3 (04:53→21:00)
[2020-07-25] MEDS ORDERED: FUROSEMIDE 100 MG/10 ML VIAL ONE (06:03)
[2020-07-25] MEDS: FUROSEMIDE 100 MG in DEXTROSE 5% 100 ML IV SCH ×4 (06:17→20:50)
[2020-07-25] MEDS: LABETALOL 100 MG/20 ML VIAL IV PRN ×2 (06:28→17:55)
[2020-07-25] MEDS: BLOOD GLUCOSE MONITORING 1 DEV DEV FS SCH ×4 (07:48→21:38)
[2020-07-25] MEDS: metOLazone 5 MG TAB PO SCH (09:29)
[2020-07-25] MEDS: NIFEdipine 90 MG TABER PO SCH (09:30)
[2020-07-25] MEDS: carvediloL 12.5 MG TAB PO SCH ×2 (09:30→20:38)
[2020-07-25] MEDS: ISOSORBIDE DINITRATE 20 MG TAB PO SCH ×3 (09:31→17:34)
[2020-07-25] MEDS: FAMOTIDINE 20 MG/2 ML VIAL IVP SCH (09:31)
[2020-07-25] MEDS: DOCUSATE SODIUM 100 MG GELCAP PO SCH (09:31)
[2020-07-25] MEDS: SODIUM ZIRCONIUM CYCLOSILICATE 10 GM POWD.PACK PO SCH (09:49)
[2020-07-25] MEDS: SODIUM FERRIC GLUCONATE 125 MG in NACL 0.9% 100 ML IV SCH (14:15)
[2020-07-26] VITALS: BP 103/59
[2020-07-26] MEDS: ALBUTEROL SULFATE/IPRATROPIU 3 ML SOL IH SCH ×4 (01:00→19:25)
[2020-07-26 04:00] VITALS: BP 107/54
[2020-07-26] MEDS: hydrALAZINE 25 MG TAB PO SCH ×3 (04:47→20:47)
[2020-07-26] MEDS: CLONIDINE HYDROCHLORIDE 0.1 MG TAB PO SCH ×3 (04:47→20:47)
[2020-07-26 05:44] LABS: BASOPHILS # (AUTO) 0.1 K/uL (0.00-0.22); BASOPHILS % (AUTO) 1.3 % (0.0-2.0); EOSINOPHILS # (AUTO) 0.1 K/uL (0-0.4); EOSINOPHILS % (AUTO) 3.3 % (0.0-4.0); LYMPHOCYTES # (AUTO) 0.9 K/uL (2.0-11.5); LYMPHOCYTES % (AUTO) 21.7 % (20.5-51.1); MEAN CORPUSCULAR HEMOGLOBIN 31 pg (27-31); MEAN CORPUSCULAR HGB CONC 34 g/dL (33-37); MEAN CORPUSCULAR VOLUME 89.2 fL (80-94); MONOCYTES # (AUTO) 0.5 K/uL (0.8-1.0); NEUTROPHILS # (AUTO) 2.5 K/uL (1.8-7.7); NEUTROPHILS % (AUTO) 60.7 % (42.2-75.2); PLATELET COUNT (AUTO) 279 K/uL (140-450); RED BLOOD CELL COUNT(AUTO) 2.35 MIL/uL (4.20-6.10); RED CELL DISTRIBUTION WIDTH 15.4 % (11.6-13.7); WHITE BLOOD COUNT (AUTO) 4.1 K/uL (4.8-10.8)
[2020-07-26] MEDS: BLOOD GLUCOSE MONITORING 1 DEV DEV FS SCH ×4 (05:51→20:07)
[2020-07-26 05:56] LABS: ANION GAP 10.9 (8-16); HEMOGLOBIN 7.2 g/dL (12.0-18.0); POTASSIUM 3.9 mmol/L (3.5-5.1)
[2020-07-26 05:58] LABS: PHOSPHORUS 7.5 mg/dL (2.5-4.9)
[2020-07-26] MEDS: FUROSEMIDE 100 MG in DEXTROSE 5% 100 ML IV SCH (06:56)
[2020-07-26 08:00] VITALS: BP 111/62
[2020-07-26] MEDS: DOCUSATE SODIUM 100 MG GELCAP PO SCH (10:25)
[2020-07-26] MEDS: FAMOTIDINE 20 MG/2 ML VIAL IVP SCH (10:25)
[2020-07-26] MEDS: metOLazone 5 MG TAB PO SCH (10:26)
[2020-07-26] MEDS: SODIUM ZIRCONIUM CYCLOSILICATE 10 GM POWD.PACK PO SCH (10:26)
[2020-07-26] MEDS: ISOSORBIDE DINITRATE 20 MG TAB PO SCH ×3 (10:26→16:47)
[2020-07-26] MEDS: NIFEdipine 90 MG TABER PO SCH (10:27)
[2020-07-26] MEDS: carvediloL 12.5 MG TAB PO SCH ×2 (10:27→20:40)
[2020-07-26 12:00] VITALS: BP 111/54
[2020-07-26] MEDS ORDERED: EPOETIN ALFA-EPBX 10,000 UNITS/ML VIAL SUBQ SCH (12:05)
[2020-07-26] MEDS: FUROSEMIDE 100 MG in DEXTROSE 5% 90 ML IV SCH (12:59)
[2020-07-26] MEDS: SODIUM FERRIC GLUCONATE 125 MG in NACL 0.9% 100 ML IV SCH (14:33)
[2020-07-26 16:00] VITALS: BP 153/72
[2020-07-26 20:00] VITALS: BP 116/77
[2020-07-27] VITALS: BP 170/80
[2020-07-27] MEDS: ALBUTEROL SULFATE/IPRATROPIU 3 ML SOL IH SCH ×4 (01:00→19:38)
[2020-07-27] MEDS: LABETALOL 100 MG/20 ML VIAL IV PRN (01:33)
[2020-07-27 04:00] VITALS: BP 1/80
[2020-07-27 05:30] LABS: BASOPHILS % (AUTO) 0.9 % (0.0-2.0); EOSINOPHILS # (AUTO) 0.2 K/uL (0-0.4); EOSINOPHILS % (AUTO) 3.9 % (0.0-4.0); HEMATOCRIT 22.4 % (36-52); HEMOGLOBIN 7.6 g/dL (12.0-18.0); LYMPHOCYTES # (AUTO) 0.9 K/uL (2.0-11.5); LYMPHOCYTES % (AUTO) 18.7 % (20.5-51.1); MEAN CORPUSCULAR HEMOGLOBIN 30 pg (27-31); MEAN CORPUSCULAR HGB CONC 34 g/dL (33-37); MEAN CORPUSCULAR VOLUME 89.5 fL (80-94); MONOCYTES # (AUTO) 0.6 K/uL (0.8-1.0); MONOCYTES % (AUTO) 12.3 % (1.7-9.3); NEUTROPHILS # (AUTO) 3.1 K/uL (1.8-7.7); NEUTROPHILS % (AUTO) 64.2 % (42.2-75.2); PLATELET COUNT (AUTO) 313 K/uL (140-450); RED CELL DISTRIBUTION WIDTH 15.4 % (11.6-13.7); WHITE BLOOD COUNT (AUTO) 4.8 K/uL (4.8-10.8)
[2020-07-27] MEDS: CLONIDINE HYDROCHLORIDE 0.1 MG TAB PO SCH ×3 (05:43→21:00)
[2020-07-27] MEDS: hydrALAZINE 25 MG TAB PO SCH ×3 (05:43→21:00)
[2020-07-27 06:25] LABS: MAGNESIUM 1.9 mg/dL (1.8-2.4); PHOSPHORUS 7.2 mg/dL (2.5-4.9)
[2020-07-27] MEDS: BLOOD GLUCOSE MONITORING 1 DEV DEV FS SCH ×4 (07:51→21:14)
[2020-07-27 08:00] VITALS: BP 196/95
[2020-07-27 08:08] LABS: HEPATITIS A ANTIBODY IGM Negative (Negative); HEPATITIS B CORE AB TOTAL Negative (Negative); HEPATITIS B SURFACE ANTIBODY Non Reactive (.); HEPATITIS B SURFACE ANTIGEN Negative (Negative)
[2020-07-27] MEDS: carvediloL 12.5 MG TAB PO SCH ×2 (08:14→21:00)
[2020-07-27] MEDS: FAMOTIDINE 20 MG/2 ML VIAL IVP SCH (08:14)
[2020-07-27] MEDS: metOLazone 5 MG TAB PO SCH (08:15)
[2020-07-27] MEDS: ISOSORBIDE DINITRATE 20 MG TAB PO SCH ×3 (08:15→16:40)
[2020-07-27] MEDS: DOCUSATE SODIUM 100 MG GELCAP PO SCH (08:16)
[2020-07-27] MEDS ORDERED: BUPIVACAINE-MPF/EPI 0.25% 30 ML VIAL INJ ONE (08:16)
[2020-07-27] MEDS: NIFEdipine 90 MG TABER PO SCH (08:16)
[2020-07-27] MEDS ORDERED: LIDOCAINE 1% 500 MG/50 ML VIAL ONE (08:16)
[2020-07-27] MEDS: SODIUM ZIRCONIUM CYCLOSILICATE 10 GM POWD.PACK PO SCH (08:16)
[2020-07-27] MEDS ORDERED: fentaNYL citrate 0.05 MG/ML VIAL ONE (09:05)
[2020-07-27] MEDS ORDERED: BLOOD GLUCOSE MONITORING 1 DEV DEV FS SCH (09:20)
[2020-07-27] MEDS ORDERED: HYDROmorphone 1 MG/ML AMP IVP PRN (09:20)
[2020-07-27] MEDS ORDERED: diphenhydrAMINE 50 MG/ML VIAL IVP PRN (09:20)
[2020-07-27] MEDS ORDERED: ONDANSETRON 4 MG/2 ML VIAL IVP PRN (09:20)
[2020-07-27] MEDS ORDERED: NACL 0.9% 1,000 ML IV SCH (09:20)
[2020-07-27] MEDS ORDERED: MEPERIDINE 25 MG/ML SYR IVP PRN (09:20)
[2020-07-27 10:00] LABS: ANION GAP 14.9 (8-16); CARBON DIOXIDE 27.7 mmol/L (21-32); POTASSIUM 3.6 mmol/L (3.5-5.1)
[2020-07-27 10:03] LABS: CREATININE 4.3 mg/dL (0.6-1.3)
[2020-07-27 12:00] VITALS: BP 142/85
[2020-07-27] MEDS: SODIUM FERRIC GLUCONATE 125 MG in NACL 0.9% 100 ML IV SCH (13:04)
[2020-07-27] MEDS: FUROSEMIDE 100 MG in DEXTROSE 5% 90 ML IV SCH (15:09)
[2020-07-27 16:00] VITALS: BP 154/76
[2020-07-27 20:00] VITALS: BP 101/53
[2020-07-28] VITALS: BP 138/95
[2020-07-28] MEDS: FUROSEMIDE 100 MG in DEXTROSE 5% 90 ML IV SCH (00:11)
[2020-07-28] MEDS: ALBUTEROL SULFATE/IPRATROPIU 3 ML SOL IH SCH ×3 (01:08→12:21)
[2020-07-28 04:00] VITALS: BP 106/97
[2020-07-28] MEDS: CLONIDINE HYDROCHLORIDE 0.1 MG TAB PO SCH ×3 (05:00→22:33)
[2020-07-28] MEDS: hydrALAZINE 25 MG TAB PO SCH ×3 (05:00→22:32)
[2020-07-28] MEDS: BLOOD GLUCOSE MONITORING 1 DEV DEV FS SCH ×4 (07:52→21:18)
[2020-07-28 08:00] VITALS: BP 112/63
[2020-07-28] MEDS: SODIUM ZIRCONIUM CYCLOSILICATE 10 GM POWD.PACK PO SCH (09:00)
[2020-07-28] MEDS: FAMOTIDINE 20 MG/2 ML VIAL IVP SCH (09:00)
[2020-07-28] MEDS: ISOSORBIDE DINITRATE 20 MG TAB PO SCH ×3 (09:00→17:24)
[2020-07-28] MEDS: NIFEdipine 90 MG TABER PO SCH (09:00)
[2020-07-28] MEDS: carvediloL 12.5 MG TAB PO SCH ×2 (09:00→21:20)
[2020-07-28] MEDS: metOLazone 5 MG TAB PO SCH (09:00)
[2020-07-28] MEDS: DOCUSATE SODIUM 100 MG GELCAP PO SCH (09:00)
[2020-07-28 11:19] LABS: BASOPHILS # (AUTO) 0.1 K/uL (0.00-0.22); EOSINOPHILS # (AUTO) 0.2 K/uL (0-0.4); EOSINOPHILS % (AUTO) 2.9 % (0.0-4.0); HEMATOCRIT 22.1 % (36-52); HEMOGLOBIN 7.5 g/dL (12.0-18.0); LYMPHOCYTES % (AUTO) 18.9 % (20.5-51.1); MEAN CORPUSCULAR HEMOGLOBIN 30 pg (27-31); MEAN CORPUSCULAR HGB CONC 34 g/dL (33-37); MEAN CORPUSCULAR VOLUME 89.3 fL (80-94); MONOCYTES # (AUTO) 0.7 K/uL (0.8-1.0); MONOCYTES % (AUTO) 13.2 % (1.7-9.3); NEUTROPHILS # (AUTO) 3.3 K/uL (1.8-7.7); PLATELET COUNT (AUTO) 319 K/uL (140-450); RED BLOOD CELL COUNT(AUTO) 2.48 MIL/uL (4.20-6.10); RED CELL DISTRIBUTION WIDTH 15.3 % (11.6-13.7); WHITE BLOOD COUNT (AUTO) 5.2 K/uL (4.8-10.8)
[2020-07-28 11:36] LABS: PHOSPHORUS 7.4 mg/dL (2.5-4.9)
[2020-07-28 11:36] LABS: ANION GAP 12.7 (8-16); CARBON DIOXIDE 26.7 mmol/L (21-32); POTASSIUM 3.4 mmol/L (3.5-5.1)
[2020-07-28 11:43] LABS: CREATININE 4.8 mg/dL (0.6-1.3)
[2020-07-28 12:00] VITALS: BP 133/76
[2020-07-28] MEDS: SODIUM FERRIC GLUCONATE 125 MG in NACL 0.9% 100 ML IV SCH (14:00)
[2020-07-28] MEDS ORDERED: LIDOCAINE 1% 500 MG/50 ML VIAL ONE (14:10)
[2020-07-28] MEDS ORDERED: BUPIVACAINE-MPF/EPI 0.25% 30 ML VIAL INJ ONE (14:10)
[2020-07-28] MEDS ORDERED: fentaNYL citrate 0.05 MG/ML VIAL ONE (15:10)
[2020-07-28] MEDS ORDERED: ONDANSETRON 4 MG/2 ML VIAL ONE (15:10)
[2020-07-28] MEDS ORDERED: DEXAMETHASONE 4 MG/ML VIAL ONE (15:10)
[2020-07-28] MEDS ORDERED: MIDAZOLAM 2 MG/2 ML VIAL ONE (15:10)
[2020-07-28] MEDS ORDERED: ceFAZolin 1,000 MG VIAL ONE (15:18)
[2020-07-28] MEDS ORDERED: MEPERIDINE 25 MG/ML SYR IVP PRN (15:50)
[2020-07-28] MEDS ORDERED: BLOOD GLUCOSE MONITORING 1 DEV DEV FS ONE (15:50)
[2020-07-28] MEDS ORDERED: HYDROmorphone 1 MG/ML AMP IVP PRN (15:50)
[2020-07-28] MEDS ORDERED: NACL 0.9% 1,000 ML IV SCH (15:50)
[2020-07-28] MEDS ORDERED: ONDANSETRON 4 MG/2 ML VIAL IVP PRN (15:50)
[2020-07-28 16:00] VITALS: BP 159/82
[2020-07-28] MEDS: FUROSEMIDE 40 MG TAB PO SCH (17:24)
[2020-07-28] MEDS ORDERED: ALBUTEROL SULFATE/IPRATROPIU 3 ML SOL IH PRN (18:20)
[2020-07-28 20:00] VITALS: BP 184/92
[2020-07-28] MEDS: INSULIN LISPRO SLIDING SCALE 100 UNITS/ML VIAL SUBQ PRN (21:19)
[2020-07-29] VITALS: BP 193/90
[2020-07-29] MEDS: LABETALOL 100 MG/20 ML VIAL IV PRN (01:06)
[2020-07-29 04:00] VITALS: BP 183/89
[2020-07-29] MEDS: CLONIDINE HYDROCHLORIDE 0.1 MG TAB PO SCH ×3 (04:44→21:59)
[2020-07-29] MEDS: hydrALAZINE 25 MG TAB PO SCH ×3 (04:44→21:59)
[2020-07-29] MEDS: CLONIDINE HYDROCHLORIDE 0.1 MG TAB PO PRN (06:29)
[2020-07-29] MEDS: BLOOD GLUCOSE MONITORING 1 DEV DEV FS SCH ×4 (06:33→21:13)
[2020-07-29] MEDS: INSULIN LISPRO SLIDING SCALE 100 UNITS/ML VIAL SUBQ PRN (06:34)
[2020-07-29 06:45] LABS: BASOPHILS % (AUTO) 0.5 % (0.0-2.0); HEMATOCRIT 22.9 % (36-52); HEMOGLOBIN 7.9 g/dL (12.0-18.0); LYMPHOCYTES # (AUTO) 0.6 K/uL (2.0-11.5); LYMPHOCYTES % (AUTO) 17.3 % (20.5-51.1); MEAN CORPUSCULAR HEMOGLOBIN 31 pg (27-31); MEAN CORPUSCULAR HGB CONC 35 g/dL (33-37); MEAN CORPUSCULAR VOLUME 88.8 fL (80-94); MONOCYTES # (AUTO) 0.4 K/uL (0.8-1.0); MONOCYTES % (AUTO) 12.2 % (1.7-9.3); NEUTROPHILS # (AUTO) 2.5 K/uL (1.8-7.7); PLATELET COUNT (AUTO) 343 K/uL (140-450); RED BLOOD CELL COUNT(AUTO) 2.58 MIL/uL (4.20-6.10); WHITE BLOOD COUNT (AUTO) 3.6 K/uL (4.8-10.8)
[2020-07-29 06:58] LABS: ANION GAP 12.6 (8-16); CARBON DIOXIDE 27.7 mmol/L (21-32); CREATININE 3.5 mg/dL (0.6-1.3); POTASSIUM 3.3 mmol/L (3.5-5.1)
[2020-07-29 07:09] LABS: MAGNESIUM 1.9 mg/dL (1.8-2.4); PHOSPHORUS 5.6 mg/dL (2.5-4.9)
[2020-07-29 08:00] VITALS: BP 176/87
[2020-07-29] MEDS: DOCUSATE SODIUM 100 MG GELCAP PO SCH (08:17)
[2020-07-29] MEDS: metOLazone 5 MG TAB PO SCH (08:18)
[2020-07-29] MEDS: FUROSEMIDE 40 MG TAB PO SCH ×2 (08:19→16:59)
[2020-07-29] MEDS: SODIUM ZIRCONIUM CYCLOSILICATE 10 GM POWD.PACK PO SCH (08:25)
[2020-07-29] MEDS ORDERED: POTASSIUM CHLORIDE 10 MEQ TABER PO ONE (08:25)
[2020-07-29] MEDS: carvediloL 12.5 MG TAB PO SCH ×2 (08:26→21:12)
[2020-07-29] MEDS: ISOSORBIDE DINITRATE 20 MG TAB PO SCH ×3 (08:26→16:58)
[2020-07-29] MEDS: NIFEdipine 90 MG TABER PO SCH (08:27)
[2020-07-29] MEDS: FAMOTIDINE 20 MG/2 ML VIAL IVP SCH (08:29)
[2020-07-29 12:00] VITALS: BP 181/101
[2020-07-29] MEDS: CALCIUM ACETATE 667 MG TAB PO SCH ×2 (12:03→16:58)
[2020-07-29 16:00] VITALS: BP 177/96
[2020-07-29 20:00] VITALS: BP 129/71
[2020-07-30] VITALS: BP 181/90
[2020-07-30] MEDS: LABETALOL 100 MG/20 ML VIAL IV PRN ×5 (00:34→23:55)
[2020-07-30] MEDS: CLONIDINE HYDROCHLORIDE 0.1 MG TAB PO PRN ×3 (02:30→16:35)
[2020-07-30 04:00] VITALS: BP 190/94
[2020-07-30] MEDS: CLONIDINE HYDROCHLORIDE 0.1 MG TAB PO SCH ×3 (05:04→21:05)
[2020-07-30] MEDS: hydrALAZINE 25 MG TAB PO SCH ×3 (05:05→21:06)
[2020-07-30 06:44] LABS: BASOPHILS # (AUTO) 0.1 K/uL (0.00-0.22); BASOPHILS % (AUTO) 1.1 % (0.0-2.0); EOSINOPHILS # (AUTO) 0.2 K/uL (0-0.4); EOSINOPHILS % (AUTO) 4.1 % (0.0-4.0); HEMATOCRIT 21.7 % (36-52); HEMOGLOBIN 7.5 g/dL (12.0-18.0); LYMPHOCYTES # (AUTO) 1.1 K/uL (2.0-11.5); LYMPHOCYTES % (AUTO) 19.7 % (20.5-51.1); MEAN CORPUSCULAR HEMOGLOBIN 31 pg (27-31); MEAN CORPUSCULAR HGB CONC 35 g/dL (33-37); MEAN CORPUSCULAR VOLUME 89.1 fL (80-94); MONOCYTES # (AUTO) 0.8 K/uL (0.8-1.0); MONOCYTES % (AUTO) 14.5 % (1.7-9.3); NEUTROPHILS # (AUTO) 3.2 K/uL (1.8-7.7); NEUTROPHILS % (AUTO) 60.6 % (42.2-75.2); PLATELET COUNT (AUTO) 342 K/uL (140-450); RED BLOOD CELL COUNT(AUTO) 2.43 MIL/uL (4.20-6.10); RED CELL DISTRIBUTION WIDTH 15.5 % (11.6-13.7); WHITE BLOOD COUNT (AUTO) 5.4 K/uL (4.8-10.8)
[2020-07-30] MEDS: BLOOD GLUCOSE MONITORING 1 DEV DEV FS SCH ×4 (06:48→21:12)
[2020-07-30 06:55] LABS: ANION GAP 11.3 (8-16); CARBON DIOXIDE 30.7 mmol/L (21-32); CREATININE 2.6 mg/dL (0.6-1.3)
[2020-07-30 07:07] LABS: MAGNESIUM 1.7 mg/dL (1.8-2.4); PHOSPHORUS 3.9 mg/dL (2.5-4.9)
[2020-07-30] MEDS ORDERED: POTASSIUM CHLORIDE 10 MEQ TABER PO ONE (07:50)
[2020-07-30] MEDS ORDERED: MAG SULF 2000 MG/WATER PREMIX 50 ML IV ONE (07:50)
[2020-07-30 08:00] VITALS: BP 175/84
[2020-07-30] MEDS: carvediloL 12.5 MG TAB PO SCH ×2 (08:38→21:04)
[2020-07-30] MEDS: CALCIUM ACETATE 667 MG TAB PO SCH ×3 (08:38→16:35)
[2020-07-30] MEDS: metOLazone 5 MG TAB PO SCH (08:39)
[2020-07-30] MEDS: DOCUSATE SODIUM 100 MG GELCAP PO SCH (08:39)
[2020-07-30] MEDS: lisinopriL 5 MG TAB PO SCH (08:39)
[2020-07-30] MEDS: ISOSORBIDE DINITRATE 20 MG TAB PO SCH ×3 (08:39→16:36)
[2020-07-30] MEDS: FUROSEMIDE 40 MG TAB PO SCH ×2 (08:40→16:36)
[2020-07-30] MEDS: FAMOTIDINE 20 MG/2 ML VIAL IVP SCH (08:40)
[2020-07-30] MEDS: NIFEdipine 30 MG TABER PO SCH (08:42)
[2020-07-30] MEDS: SODIUM ZIRCONIUM CYCLOSILICATE 10 GM POWD.PACK PO SCH (08:43)
[2020-07-30 12:00] VITALS: BP 185/88
[2020-07-30 16:00] VITALS: BP 182/90
[2020-07-30 20:00] VITALS: BP 200/95
[2020-07-31] MEDS: LABETALOL 100 MG/20 ML VIAL IV PRN ×3 (01:19→06:10)
[2020-07-31 04:00] VITALS: BP 191/92
[2020-07-31] MEDS: hydrALAZINE 25 MG TAB PO SCH ×3 (04:24→21:38)
[2020-07-31] MEDS: CLONIDINE HYDROCHLORIDE 0.1 MG TAB PO SCH ×3 (04:26→21:38)
[2020-07-31 06:21] LABS: BASOPHILS # (AUTO) 0.1 K/uL (0.00-0.22); BASOPHILS % (AUTO) 1.5 % (0.0-2.0); EOSINOPHILS # (AUTO) 0.2 K/uL (0-0.4); EOSINOPHILS % (AUTO) 3.7 % (0.0-4.0); HEMATOCRIT 22.5 % (36-52); HEMOGLOBIN 7.8 g/dL (12.0-18.0); LYMPHOCYTES # (AUTO) 1.2 K/uL (2.0-11.5); LYMPHOCYTES % (AUTO) 19.8 % (20.5-51.1); MEAN CORPUSCULAR HEMOGLOBIN 31 pg (27-31); MEAN CORPUSCULAR HGB CONC 35 g/dL (33-37); MEAN CORPUSCULAR VOLUME 89.7 fL (80-94); MONOCYTES # (AUTO) 0.6 K/uL (0.8-1.0); MONOCYTES % (AUTO) 10.7 % (1.7-9.3); NEUTROPHILS # (AUTO) 3.8 K/uL (1.8-7.7); NEUTROPHILS % (AUTO) 64.3 % (42.2-75.2); PLATELET COUNT (AUTO) 355 K/uL (140-450); RED BLOOD CELL COUNT(AUTO) 2.51 MIL/uL (4.20-6.10); RED CELL DISTRIBUTION WIDTH 15.2 % (11.6-13.7)
[2020-07-31 06:25] LABS: ANION GAP 8.7 (8-16); CARBON DIOXIDE 30.4 mmol/L (21-32); CREATININE 2.8 mg/dL (0.6-1.3); POTASSIUM 3.1 mmol/L (3.5-5.1)
[2020-07-31 06:52] LABS: MAGNESIUM 1.9 mg/dL (1.8-2.4); PHOSPHORUS 4.4 mg/dL (2.5-4.9)
[2020-07-31] MEDS: BLOOD GLUCOSE MONITORING 1 DEV DEV FS SCH ×4 (06:55→20:51)
[2020-07-31 08:00] VITALS: BP 194/94
[2020-07-31] MEDS: SODIUM ZIRCONIUM CYCLOSILICATE 10 GM POWD.PACK PO SCH (09:00)
[2020-07-31] MEDS: DOCUSATE SODIUM 100 MG GELCAP PO SCH (09:06)
[2020-07-31] MEDS: CALCIUM ACETATE 667 MG TAB PO SCH ×3 (09:06→17:44)
[2020-07-31] MEDS: NIFEdipine 30 MG TABER PO SCH (09:07)
[2020-07-31] MEDS: lisinopriL 5 MG TAB PO SCH (09:08)
[2020-07-31] MEDS: ISOSORBIDE DINITRATE 20 MG TAB PO SCH ×3 (09:09→17:00)
[2020-07-31] MEDS: metOLazone 5 MG TAB PO SCH (09:10)
[2020-07-31] MEDS: carvediloL 12.5 MG TAB PO SCH ×2 (09:10→21:38)
[2020-07-31] MEDS: FUROSEMIDE 40 MG TAB PO SCH ×2 (09:10→17:44)
[2020-07-31] MEDS: FAMOTIDINE 20 MG/2 ML VIAL IVP SCH (09:11)
[2020-07-31] MEDS ORDERED: CALC667C3 PO (09:53)
[2020-07-31] MEDS ORDERED: CARV12.52 PO (09:53)
[2020-07-31] MEDS ORDERED: ISOS20TA13 PO (09:53)
[2020-07-31] MEDS ORDERED: CLON-1170 PO (09:55)
[2020-07-31] MEDS ORDERED: POTASSIUM CHLORIDE 10 MEQ TABER PO SCH (12:00)
[2020-07-31 16:00] VITALS: BP 97/54
[2020-08-01] VITALS: BP 124/66
[2020-08-01] MEDS: hydrALAZINE 25 MG TAB PO SCH (04:05)
[2020-08-01] MEDS: CLONIDINE HYDROCHLORIDE 0.1 MG TAB PO SCH (04:05)
[2020-08-01] MEDS: BLOOD GLUCOSE MONITORING 1 DEV DEV FS SCH ×2 (06:30→11:19)
[2020-08-01 08:00] VITALS: BP 149/80
[2020-08-01] MEDS: DOCUSATE SODIUM 100 MG GELCAP PO SCH (08:52)
[2020-08-01] MEDS: CALCIUM ACETATE 667 MG TAB PO SCH (08:52)
[2020-08-01] MEDS: FUROSEMIDE 40 MG TAB PO SCH (08:52)
[2020-08-01] MEDS: carvediloL 12.5 MG TAB PO SCH (08:53)
[2020-08-01] MEDS: SODIUM ZIRCONIUM CYCLOSILICATE 10 GM POWD.PACK PO SCH (08:53)
[2020-08-01] MEDS: NIFEdipine 30 MG TABER PO SCH (08:53)
[2020-08-01] MEDS: FAMOTIDINE 20 MG/2 ML VIAL IVP SCH (08:54)
[2020-08-01] MEDS ORDERED: lisinopriL 20 MG TAB PO SCH (09:00)
[2020-08-01] MEDS: ISOSORBIDE DINITRATE 20 MG TAB PO SCH (09:00)
[2020-08-01] MEDS: INSULIN LISPRO SLIDING SCALE 100 UNITS/ML VIAL SUBQ PRN (11:24)
== END 2020-08-01 11:30 | disposition home or self-care (01) | DRG 291 ==
LOC: MED 09:23 → MTU 11:58 → INTOOBSV 11:58 → OBSVTOIN 07-20 16:17 → MIC 07-21 19:40 → MTU 07-24 10:20
PROVIDERS: ADMIT Hospitalist; ATTEND Hospitalist
PROC: 5A1D70Z Performance of Urinary Filtration, Intermittent, Less than 6 Hours Per Day (ICD-10-PCS; 2020-07-27)
PROC: B5181ZA Fluoroscopy of Superior Vena Cava using Low Osmolar Contrast, Guidance (ICD-10-PCS; 2020-07-28)
PROC: 02H633Z Insertion of Infusion Device into Right Atrium, Percutaneous Approach (ICD-10-PCS; 2020-07-28)
PROC: B548ZZA Ultrasonography of Superior Vena Cava, Guidance (ICD-10-PCS; 2020-07-28)
PROC: 5A1D70Z Performance of Urinary Filtration, Intermittent, Less than 6 Hours Per Day (ICD-10-PCS; 2020-07-28)
PROC: 0JH63XZ Insertion of Tunneled Vascular Access Device into Chest Subcutaneous Tissue and Fascia, Percutaneous Approach (ICD-10-PCS; principal; 2020-07-28 14:00)
PROC: 5A1D70Z Performance of Urinary Filtration, Intermittent, Less than 6 Hours Per Day (ICD-10-PCS; 2020-07-31)
DX: I13.0 Hypertensive heart and chronic kidney disease with heart failure and stage 1 through stage 4 chronic kidney disease, or unspecified chronic kidney disease (principal); J96.01 Acute respiratory failure with hypoxia; I50.43 Acute on chronic combined systolic (congestive) and diastolic (congestive) heart failure; N18.6 End stage renal disease; N17.9 Acute kidney failure, unspecified; R65.10 Systemic inflammatory response syndrome (SIRS) of non-infectious origin without acute organ dysfunction; E11.22 Type 2 diabetes mellitus with diabetic chronic kidney disease; E11.51 Type 2 diabetes mellitus with diabetic peripheral angiopathy without gangrene; E11.40 Type 2 diabetes mellitus with diabetic neuropathy, unspecified; E11.649 Type 2 diabetes mellitus with hypoglycemia without coma; E78.5 Hyperlipidemia, unspecified; Z79.4 Long term (current) use of insulin; Z89.512 Acquired absence of left leg below knee; Z20.822 Contact with and (suspected) exposure to COVID-19; E87.5 Hyperkalemia; Z99.2 Dependence on renal dialysis; I16.0 Hypertensive urgency
CPT/HCPCS: 36415; 71045; 76770; 77003; 80048; 80053; 81003; 82550; 82728; 82948; 83036; 83540; 83605; 83735; 83880; 84100; 84484; 85025; 86704; 86706; 86708; 86709; 86803; 87040; 87081; 87086; 87340; 93005; 94640; 96365; 96375; 99285; C1758; C1894; G0378; J0690; J0696; J1100; J1644; J1940; J2001; J2250; J2405; J2916; J3010; J3475; J3490; J7030; J7060; Q5106

== ENCOUNTER 2021-01-09 06:30 | Emergency (ER) | payer OTHER, SELFPAY ==
[~2021-01-09] VITALS: Ht 165.1 cm; Wt 45.4 kg
[~2021-01-09 06:30] MED LIST changes: -AZIT500T8 PO; +CALC667C3 PO; +CARV12.52 PO; -CEPH500T PO; +CLON-1170 PO; -FERR325E14 PO; +ISOS20TA13 PO; -LISI-487 PO; -METO100T14 PO; -POTA10TE30 PO
[2021-01-09] MEDS ORDERED: INTUBATION KIT MC ONE (06:49)
[2021-01-09 06:50] VITALS: BP 245/178
--- NOTE | 2021-01-09 07:05 | NUR ---
55 Y/O M BIB FAMILY C/O ALOC. LAST SEEN NORMAL 0430. FAMILY STATES PATIENT WOKE UP AT 0430 STATING HE FELT ILL, DIZZY, AND PRESENTED DIAPHORETIC. 0530 PATIENT NOTED BY FAMILY TO BE ALTERED. LAST DIALYSIS TREATMENT COMPLETED YESTERDAY. PATIENT PRESENTED TO ER RESPONSIVE TO PAINFUL STIMULI AND NON-VERBAL AT THIS TIME. ACCUCHEK 161. PT WITH DIALYSIS SHUNT R UPPER CHEST AND L BELOW THE KNEE AMPUTATION. NO TRAUMA NOTED TO HEAD/NECK/BACK, OTHER EXREMITIES. SKIN COOL/DRY/PINK. BED LOCKED IN LOWEST POSITION, SIDE RAILS X 1, CALL LIGHT IN REACH. ERMD AND RT AT BEDSIDE. PMH/MEDS: CHF, DM, HTN NKA
--- NOTE | 2021-01-09 07:05 | NUR ---
RT at bedside
--- NOTE | 2021-01-09 07:09 | NUR ---
PT TRANSPORTED FROM BED 09 TO BED 10; PLACED ONTO SENIOR RADIATION THERAPIST SHOWING VS: BP 261/135, HR 74, SPO2 97% ON ROOM AIR, RR 17
[2021-01-09] MEDS ORDERED: LABETALOL 100 MG/20 ML VIAL IVP ONE (07:10)
[2021-01-09 07:17] LABS: BASOPHILS # (AUTO) 0.1 K/uL (0.00-0.22); BASOPHILS % (AUTO) 0.6 % (0.0-2.0); EOSINOPHILS # (AUTO) 0.4 K/uL (0-0.4); HEMOGLOBIN 12.8 g/dL (12.0-18.0); LYMPHOCYTES # (AUTO) 1.5 K/uL (2.0-11.5); LYMPHOCYTES % (AUTO) 12.7 % (20.5-51.1); MEAN CORPUSCULAR HEMOGLOBIN 30 pg (27-31); MEAN CORPUSCULAR HGB CONC 34 g/dL (33-37); MEAN CORPUSCULAR VOLUME 88.8 fL (80-94); MONOCYTES # (AUTO) 0.7 K/uL (0.8-1.0); MONOCYTES % (AUTO) 5.4 % (1.7-9.3); NEUTROPHILS # (AUTO) 9.4 K/uL (1.8-7.7); NEUTROPHILS % (AUTO) 78.3 % (42.2-75.2); PLATELET COUNT (AUTO) 350 K/uL (140-450); RED BLOOD CELL COUNT(AUTO) 4.28 MIL/uL (4.20-6.10); RED CELL DISTRIBUTION WIDTH 14.6 % (11.6-13.7)
--- NOTE | 2021-01-09 07:17 | NUR ---
INTUBATED AT THIS TIME; 7.0 ET TUBE 24" FROM THE TEETH
[2021-01-09] MEDS ORDERED: PROPOFOL 1000 MG/100 ML PREMIX 100 ML IV ONE (07:19)
[2021-01-09] MEDS ORDERED: NITROPRUSSIDE 50 MG in DEXTROSE 5% 250 ML IV ONE (07:25)
[2021-01-09] MEDS ORDERED: NITROGLYCERIN IV ONE (07:26)
[2021-01-09] MEDS ORDERED: D5W IV ONE (07:26)
[2021-01-09] MEDS ORDERED: NITROGLYCERIN 50 MG/D5W PREMIX 250 ML IV ONE (07:27)
[2021-01-09 07:30] VITALS: BP 251/139
[2021-01-09 07:32] LABS: PROTHROMBIN TIME 10.5 secs (10.8-13.4)
[2021-01-09] MEDS ORDERED: NICARDIPINE HYDROCHLORIDE 25 MG in NACL 0.9% 240 ML IV ONE (07:40)
[2021-01-09] MEDS ORDERED: OSMITROL 25% 12.5 GM/50 ML VIAL IV ONE (07:40)
--- NOTE | 2021-01-09 07:41 | NUR ---
PER DR. PETTY, TO HOLD [place] DRIP [place] [facility] [place]
[2021-01-09 07:48] LABS: ALBUMIN 3.3 g/dL (3.4-5.0); ANION GAP 13.8 (8-16); CARBON DIOXIDE 28.3 mmol/L (21-32); POTASSIUM 4.1 mmol/L (3.5-5.1); TOTAL BILIRUBIN 0.7 mg/dL (0.0-1.0)
[2021-01-09 07:53] LABS: CREATININE 4.2 mg/dL (0.6-1.3)
--- NOTE | 2021-01-09 08:22 | NUR ---
DR. PETTY AND RT AT BEDSIDE
--- NOTE | 2021-01-09 08:25 | NUR ---
# [address] catheter inserted. Immediate return of 125 ml yellow urine noted. Bedside drainage bag placed below level of bladder. Urine sample collected and sent to lab. Pt tolerated procedure well.
--- NOTE | 2021-01-09 08:25 | NUR ---
AT BEDSIDE WITH DR PETTY, ADJUSTED VENT SETTINGS TO AC 20 AND VT 450. MOVED ETT PLACEMENT TO 25CM @ THE LIP.
--- NOTE | 2021-01-09 08:27 | NUR ---
FR #14 OG TUBE INSERTED UP TO 25CM. PROPER PLACEMENT VERIFIED BY XRAY. PT TOLERATED PROCEDURE WELL.
[2021-01-09 08:33] LABS: APPEARANCE,URINE CLEAR (CLEAR); BILIRUBIN,URINE NEGATIVE (NEGATIVE); BLOOD, URINE 1+ (NEGATIVE); COLOR,URINE YELLOW (YELLOW); LEUKOCYTE ESTERASE ,URINE NEGATIVE (NEGATIVE); NITRITE, URINE NEGATIVE (NEGATIVE); UGLUCOSE 1+ (NEGATIVE)
--- NOTE | 2021-01-09 08:35 | NUR ---
RECTAL TEMPERATURE 94.2. WARMING MEASURES REMAIN IN PLACE.
--- NOTE | 2021-01-09 08:45 | NUR ---
PER DR. PETTY, IF SBP >180, INITIATE NICARDIPINE @ 5MG/HR.
--- NOTE | 2021-01-09 08:45 | NUR ---
PER DR. PETTY, IF SBP <160, PAUSE NICARDINE DRIP
--- NOTE | 2021-01-09 08:58 | NUR ---
RECTAL TEMPERATURE 94.7
--- NOTE | 2021-01-09 09:04 | NUR ---
[facility] CREW AT BEDSIDE
--- NOTE | 2021-01-09 09:05 | NUR ---
RECTAL TEMPERATURE 95.0
[2021-01-09 09:17] LABS: RBC,URINE 11-20 (MOD) /HPF (0-5); WBC,URINE 0-5 /HPF (0-5)
[2021-01-09 09:18] VITALS: BP 178/100
[2021-01-09 09:18] LABS: HYALINE CASTS, URINE 0-10 /LPF (None Seen)
--- NOTE | 2021-01-09 09:22 | NUR ---
Patient to be transferred to [facility]. Is being transferred due to higher leve of care. Receiving facility has accepting physician and available space. ER physician has signed transfer form. Patient or responsible green party has agreed to transfer and signed form. Patient belongings inventoried and will be sent with patient. Copy of nursing notes, lab reports, EKG, Physicians Orders and X-rays to be sent with patient. Report called to Shahab at receiving facility. 0904 ambulance service has been called for transfer. ETA is 10.
[2021-01-09] MEDS ORDERED: ETOMIDATE 20 MG/10 ML VIAL IVP ONE (09:25)
[2021-01-09] MEDS ORDERED: ROCURONIUM 50 MG/5 ML VIAL IV ONE (09:25)
== END 2021-01-09 09:22 | disposition short-term general hospital (02) ==
LOC: MED 06:30
DX: I61.5 Nontraumatic intracerebral hemorrhage, intraventricular (principal); I16.1 Hypertensive emergency; E11.21 Type 2 diabetes mellitus with diabetic nephropathy; E11.22 Type 2 diabetes mellitus with diabetic chronic kidney disease; I13.2 Hypertensive heart and chronic kidney disease with heart failure and with stage 5 chronic kidney disease, or end stage renal disease; N18.6 End stage renal disease; Z99.2 Dependence on renal dialysis
CPT/HCPCS: 31500; 36415; 36600; 51702; 70450; 71045; 80053; 81001; 82803; 83605; 83880; 84484; 85025; 85610; 85730; 87040; 93005; 96365; 96375; 99291; 99292; J2704; J3490; J7030; Q0092; J2150